=== PATIENT | female | born 1990 | race African-American/Black ===

== ENCOUNTER 2018-08-24 10:43 | Observation (INO) | payer OTHER, MEDICAID ==
[~2018-08-24] VITALS: Ht 165.1 cm; Wt 62.6 kg
[~2018-08-24 10:43] MED LIST: MOTRIN
[2018-08-24] MEDS ORDERED: PNV1TABL50 PO (11:20)
[2018-08-24] MEDS ORDERED: SODIUM CHLORIDE 0.9% 1,000 ML IV ONE (11:45)
[2018-08-24 12:47] LABS: CLARITY URINE CLOUDY (CLEAR); COLOR URINE YELLOW (YELLOW); KETONES URINE NEGATIVE (NEGATIVE); LEUKOCYTE ESTERASE URINE TRACE (NEGATIVE); NITRITE URINE NEGATIVE (NEGATIVE); OCCULT BLOOD URINE NEGATIVE (NEGATIVE); PH URINE 8.5 (4.5-8.0); PROTEIN URINE NEGATIVE (NEGATIVE); SPECIFIC GRAVITY URINE 1.021 (1.005-1.030)
== END 2018-08-24 13:45 | disposition home or self-care (01) ==
LOC: 8 EST LDRP 10:43
PROVIDERS: ADMIT Specialist; ATTEND Specialist
DX: O62.9 Abnormality of forces of labor, unspecified (principal); Z3A.00 Weeks of gestation of pregnancy not specified
CPT/HCPCS: 81003; G0378; 96360; 99281

== ENCOUNTER 2020-02-03 19:53 | Observation (INO) | payer MEDICAID, OTHER ==
[~2020-02-03] VITALS: Ht 165.1 cm; Wt 57.6 kg
[~2020-02-03 19:53] MED LIST changes: -MOTRIN; +PNV1TABL50 PO
[2020-02-03] MEDS ORDERED: SODIUM CHLORIDE 0.9% 1,000 ML IV NR (20:53)
[2020-02-03] MEDS: TERBUTALINE SULFATE 1MG/ML VIAL SUBCUT PRN ×2 (21:03→22:13)
[2020-02-03] MEDS ORDERED: ACETAMINOPHEN 325MG TABLET PO NR (21:15)
[2020-02-03 21:55] LABS: CLARITY URINE CLEAR (CLEAR); COLOR URINE YELLOW (YELLOW); KETONES URINE 2+ (NEGATIVE); LEUKOCYTE ESTERASE URINE TRACE (NEGATIVE); NITRITE URINE NEGATIVE (NEGATIVE); OCCULT BLOOD URINE NEGATIVE (NEGATIVE); PH URINE 6.5 (4.5-8.0); PROTEIN URINE NEGATIVE (NEGATIVE); SPECIFIC GRAVITY URINE 1.014 (1.005-1.030)
== END 2020-02-03 23:50 | disposition home or self-care (01) ==
LOC: 8 EST LDRP 19:53
PROVIDERS: ADMIT Specialist; ATTEND Specialist
DX: O62.9 Abnormality of forces of labor, unspecified (principal); Z3A.33 33 weeks gestation of pregnancy
CPT/HCPCS: 59025; 81003; 96360; 96361; 96372; G0378; J3105; 99281

== ENCOUNTER 2020-03-07 10:29 | Observation (INO) | payer MEDICAID ==
[~2020-03-07] VITALS: Ht 165.1 cm; Wt 77.1 kg
[2020-03-07] MEDS ORDERED: ACETAMINOPHEN 500MG TABLET PO NR (12:45)
[2020-03-07 13:21] LABS: *AMPHETAMINES SCREEN URINE NEGATIVE (NEGATIVE); *BARBITURATES SCREEN URINE NEGATIVE (NEGATIVE); *BENZODIAZEPINES SCREEN URINE NEGATIVE (NEGATIVE); *COCAINE SCREEN URINE NEGATIVE (NEGATIVE)
[2020-03-07 13:23] LABS: METHADONE URINE SCREEN NEGATIVE (NEGATIVE)
[2020-03-07 13:24] LABS: CANNABINOID URINE SCREEN NEGATIVE (NEGATIVE); OPIATES URINE SCREEN NEGATIVE (NEGATIVE); PHENCYCLIDINE URINE SCREEN NEGATIVE (NEGATIVE)
== END 2020-03-07 12:30 | disposition home or self-care (01) ==
LOC: 8 EST LDRP 10:29
PROVIDERS: ADMIT Specialist; ATTEND Specialist
DX: O62.9 Abnormality of forces of labor, unspecified (principal); Z3A.37 37 weeks gestation of pregnancy; Z79.899 Other long term (current) drug therapy
CPT/HCPCS: 59025; 80305; G0378; 99281

== ENCOUNTER 2020-06-13 10:12 | Emergency (ER) | payer OTHER, MEDICAID ==
[~2020-06-13] VITALS: Ht 165.1 cm; Wt 56.0 kg
[2020-06-13 11:28] LABS: BASOPHILS % 0.2 % (0.0-2.0); EOSINOPHILS % 0.2 % (0.0-5.0); HEMATOCRIT. 38.4 % (36.0-48.0); HEMOGLOBIN. 13.2 g/dL (12.0-16.0); LYMPHOCYTES % 10.8 % (20.0-50.0); MEAN CORPUSCULAR HEMOGLOBIN 30.2 pg (28.0-32.0); MEAN CORPUSCULAR VOLUME 87.6 fL (81.0-99.0); MEAN PLATELET VOLUME 8.8 fl (7.4-10.4); MONOCYTES % 12.5 % (2.0-8.0); NEUTROPHILS % 76.3 % (40.0-76.0); PLATELET 127 x1000/uL (130-400); RED BLOOD CELL COUNT 4.38 mill/uL (4.2-5.4); RED CELL DISTRIBUTION WIDTH 14.3 % (11.6-14.6)
[2020-06-13] MEDS ORDERED: KETOROLAC 15MG/ML VIAL IV ONE (11:30)
[2020-06-13 11:33] LABS: CHLORIDE 109 mEq/L (98-107)
[2020-06-13] MEDS ORDERED: IBUP-2029 MT (12:51)
[2020-06-13] MEDS ORDERED: POTASSIUM CHLORIDE 20MEQ TABLET SR PO ONE (13:00)
[2020-06-13] MEDS ORDERED: HYDROCODONE/ACETAMINOPHEN 5/325MG TABLET PO ONE (13:00)
[2020-06-13 13:13] VITALS: BP 102/73
== END 2020-06-13 13:15 | disposition home or self-care (01) ==
LOC: ER 10:50
DX: R10.9 Unspecified abdominal pain (principal)
CPT/HCPCS: 36415; 76705; 80053; 83690; 85025; 96374; 99284; J1885